=== PATIENT | male | born 1965 | race Two or more races ===

== ENCOUNTER 2021-12-20 20:31 | Emergency (ER) | payer SELFPAY ==
[~2021-12-20] VITALS: Ht 172.7 cm; Wt 80.7 kg
[2021-12-20] MEDS ORDERED: IV NORMAL SALINE 1000 ML BAG IV ONE (20:45)
[2021-12-20] MEDS ORDERED: IV NS 1000 ML 1,000 ML IV ONE ×3 (20:45→23:45)
[2021-12-20] MEDS ORDERED: THIAMINE HCL 100 MG TABLET PO ONE (20:45)
[2021-12-20] MEDS ORDERED: METF-440 PO (20:49)
[2021-12-20] MEDS ORDERED: THIAMINE HCL 100 MG TABLET ONE (20:52)
[2021-12-20 21:09] LABS: MEAN CORPUSCULAR HEMOGLOBIN 28.7 uug (23.8-33.4); MEAN CORPUSCULAR VOLUME 86.5 fL (73.0-96.2); PLATELET COUNT (AUTO) 167 K/uL (152-348)
[2021-12-20 21:33] LABS: ALANINE AMINOTRANSFERASE 25 U/L (16-63); ALKALINE PHOSPHATASE 134 U/L (50-136); ASPARTATE AMINOTRANSFERASE 15 U/L (15-37); BILIRUBIN,DIRECT 0.1 mg/dL (0.0-0.2); BILIRUBIN,TOTAL 0.2 mg/dL (0.2-1.0); CARBON DIOXIDE 21 mmol/L (21-32); CHLORIDE 99 mmol/L (98-107); CREATININE 1.1 mg/dL (0.6-1.3); POTASSIUM 3.9 mmol/L (3.5-5.1); TOTAL PROTEIN, SERUM 7.2 g/dL (6.4-8.2); UREA NITROGEN, BLOOD 11 mg/dL (7-18)
[2021-12-20 21:34] LABS: GLUCOSE 494 mg/dL (74-106)
[2021-12-20 21:41] LABS: ETHANOL 259 MG/DL (0-0)
--- NOTE | 2021-12-20 23:30 | NUR ---
PATIENT A/OX3 ABLE TO AMBULATE TO RESTROOM WITH STEADY GAIT.
--- NOTE | 2021-12-21 00:02 | NUR ---
IV removed. Catheter intact and site benign. Pressure and 4x4 gauze applied to site. No bleeding noted.
--- NOTE | 2021-12-21 00:02 | NUR ---
Patient discharged to home in stable condition WITH FRIEND TAKING PATIENT HOME. Written and verbal after care instructions given. Patient verbalizes understanding of instructions. Stressed follow up or return to ER for worsening s/s.
[2021-12-21 00:03] VITALS: BP 128/66
== END 2021-12-21 00:03 | disposition home or self-care (01) ==
LOC: ER 20:31
DX: E11.65 Type 2 diabetes mellitus with hyperglycemia (principal); Z79.84 Long term (current) use of oral hypoglycemic drugs; Z90.49 Acquired absence of other specified parts of digestive tract; D64.9 Anemia, unspecified; E87.2 Acidosis; F10.129 Alcohol abuse with intoxication, unspecified; Y90.8 Blood alcohol level of 240 mg/100 ml or more
CPT/HCPCS: 36415; 80048; 80076; 80320; 82962; 83605 ×2; 83735; 84484; 85025; 93005; 96360; 96361; 99284; J7040; A4663; G0480